=== PATIENT | male | born 1970 | race Caucasian/White ===

== ENCOUNTER 2017-11-16 06:08 | Day surgery (SDC) | payer OTHER ==
[2017-11-16] VITALS (12 sets, daily range): BP systolic 101–173; BP diastolic 57–106
[~2017-11-16] VITALS: Ht 180.3 cm; Wt 113.4 kg
[~2017-11-16 06:08] MED LIST: IBUPROFEN200 M3 PO; LOVENOX10 M4 SUBQ; NORCO 5-325 TA1 EAC1 ORAL; XARELTO10 MG ORAL
[2017-11-16] MEDS ORDERED: fentaNYL 100 mcg/2 mL IV ONE (06:09)
[2017-11-16] MEDS ORDERED: Alfentanil 2ml Inj ONE (06:09)
[2017-11-16] MEDS ORDERED: Midazolam 2mg/2ml Inj ONE (06:09)
[2017-11-16] MEDS ORDERED: LR 1000ml ONE (06:09)
[2017-11-16] MEDS ORDERED: NS Irrig 4000ml IRRIG ONE (06:09)
[2017-11-16] MEDS ORDERED: Propofol 200mg/20ml IV ONE (06:09)
[2017-11-16] MEDS ORDERED: Metoprolol 5mg/5ml Inj ONE (06:09)
[2017-11-16] MEDS ORDERED: Dexamethasone 4mg/ml vial ONE (06:09)
[2017-11-16] MEDS ORDERED: Lidocaine 1% MPF 10mg/ml 5ml ONE (06:09)
[2017-11-16] MEDS ORDERED: celeBREX 200mg Cap **SURGERY PATIENTS ONLY ORAL SCH (07:30)
[2017-11-16] MEDS ORDERED: oxyCONTIN 20mg tab ORAL SCH (07:30)
[2017-11-16] MEDS ORDERED: ceFAZolin sod 1 GM in NS 55 ML IVPB SCH (07:30)
[2017-11-16] MEDS ORDERED: D5 1/2NS 1,000 ML IV SCH (07:45)
[2017-11-16] MEDS ORDERED: Norco 5mg/325mg tab ORAL PRN ×2 (07:45→08:15)
[2017-11-16] MEDS ORDERED: HYDROmorphone 1mg/ml Carpuject SUBQ PRN (07:45)
[2017-11-16] MEDS ORDERED: Tylenol #3 tab (300mg/30mg) ORAL PRN (07:45)
--- NOTE | 2017-11-16 07:47 | Pre-Procedure Note/Attestation ---
Pre-Procedure Note/Attestation Complete Prior to Procedure Planned Procedure: left Procedure Narrative: knee diagnostic arthroscopy, removal hardware left knee Indications for Procedure Pre-Operative Diagnosis: left painful hardware , internal derangement left knee Attestation I attest that I discussed the nature of the procedure; its benefits; risks and complications; and alternatives (and the risks and benefits of such alternatives ), prior to the procedure, with the patient (or the patient's legal artists' booking representative). I attest that, if there was a reasonable possibility of needing a blood transfusion, the patient (or the patient's legal artists' booking representative) was given the [facility] standardized written summary, pursuant to the [place] Blood Safety Act ([place] Health and Safety Code # 1645, as amended). I attest that I re-evaluated the patient just prior to the surgery and that there has been no change in the patient's H&P, except as documented below: ALLIE GIRON Nov 16, 2017 07:47
--- NOTE | 2017-11-16 07:47 | Operative Note - PDOC ---
Operative Note Operative Note Pre-op Diagnosis: left painful hardware , internal derangement left knee Procedure: see op report Post-op Diagnosis: same as pre-op plus Operative Findings: consistent w/pre-op dx studies Anesthesia: regional Specimen: none Complications: none Condition: stable Estimated Blood Loss: none Implant(s) used?: No ALLIE GIRON Nov 16, 2017 07:47
[2017-11-16] MEDS ORDERED: LR 1000ml 1,000 ML IVLG SCH (08:07)
[2017-11-16] MEDS ORDERED: EPINEPHrine 1mg/1ml Amp ONE (08:07)
[2017-11-16] MEDS ORDERED: Morphine Sulfate PF 10 ML ONE (08:07)
[2017-11-16] MEDS ORDERED: Lidocaine 1% 10mg/ml/Epi 0.005mg/ml 30ml vial INJ ONE ×2 (08:07→09:25)
[2017-11-16] MEDS ORDERED: Kenalog-40 1ml Vial ONE (08:07)
[2017-11-16] MEDS ORDERED: Bupivacaine 0.25% Inj 30ml INJ ONE ×2 (08:08→09:25)
[2017-11-16] MEDS ORDERED: Midazolam 2mg/2ml Inj IVP PRN (08:15)
[2017-11-16] MEDS ORDERED: oxyCODONE HCL/Acetaminophen 5/325mg ORAL PRN (08:15)
[2017-11-16] MEDS ORDERED: Ketorolac 30mg Inj IV PRN ×2 (08:15)
[2017-11-16] MEDS ORDERED: fentaNYL 100 mcg/2 mL IV PRN (08:15)
[2017-11-16] MEDS ORDERED: DiphenhydrAMINE 50mg/ml Inj IVP PRN (08:15)
[2017-11-16] MEDS ORDERED: Hydromorphone 0.5mg/0.5ml inj IVP PRN (08:15)
[2017-11-16] MEDS ORDERED: HYDROcodone/Acetamin 7.5/325 tab ORAL PRN (08:15)
[2017-11-16] MEDS ORDERED: Labetalol 5mg/ml 20ml vial IV PRN (08:15)
[2017-11-16] MEDS ORDERED: LORazepam Inj 2mg/ml 1ml IV PRN (08:15)
[2017-11-16] MEDS ORDERED: Atropine Inj 1mg/10ml Syr IV PRN (08:15)
--- NOTE | 2017-11-16 08:15 | Anethesia Preoperative Eval ---
Anesthesia Pre-op PMH/ROS General Date of Evaluation: Nov 16, 2017 Time of Evaluation: 08:13 Anesthesiologist: Braxton ASA Score: ASA 3 Mallampati Score Class I : Soft palate, uvula, fauces, pillars visible Class II: Soft palate, uvula, fauces visible Class III: Soft palate, base of uvula visible Class IV: Only hard plate visible Mallampati Classification: Class III Surgeon: Diagnosis: L Knee Pain Surgical Procedure: L Knee Removal Hardware Anesthesia History: none Family History: no anesthesia problems Allergies: Coded Allergies: No Known Allergies (Unverified , 11/14/17) Medications: see eMAR Past Medical History Cardiovascular: Reports: HTN Pulmonary: Reports: asthma Gastrointestinal/Genitourinary: Reports: other - Hiatal Hernia Neurologic/Psychiatric: Reports: depression/anxiety Other: obesity PSxH Narrative: Multiple Knee SX, Abd Sx X 3 Anesthesia Pre-op Phys. Exam Physician Exam Last Vital Signs Date Time Temp Pulse Resp B/P (MAP) Pulse Ox O2 Delivery O2 Flow Rate FiO2 11/16/17 06:57 97.8 101 18 152/92 95 Room Air 97.8 Constitutional: NAD Neurologic: CN 2-12 intact Cardiovascular: RRR Respiratory: CTA Gastrointestinal: S/NT/ND Airway Exam Mallampati Score: Class III MO: limited ROM: limited Teeth: missing, intact Anesthesia Pre-op A/P Risk Assessment & Plan Assessment: ASA 3 Plan: GA, BIS Status Change Before Surgery: No Pre-Antibiotics Dru Grams Ancef IV Given Within 1 Hr of Incision: Yes Time Given: 08:31 Shyam Rosario MD Nov 16, 2017 08:15
--- NOTE | 2017-11-16 08:18 | Immediate Post-Op Evaluation ---
Immediate Post-Op Evalulation Immediate Post-Op Evalulation Procedure: L Knee Hardware Removal Date of Evaluation: Nov 16, 2017 Time of Evaluation: 10:59 IV Fluids: 300 LR Blood Products: 0 Estimated Blood Loss: 25 Urinary Output: 0 Blood Pressure Systolic: 177 Blood Pressure Diastolic: 118 Pulse Rate: 96 Respiratory Rate: 16 O2 Sat by Pulse Oximetry: 100 Temperature (Fahrenheit): 99.7 Pain Score (1-10): 2 Nausea: No Vomiting: No Complications 0 Patient Status: awake, reacts, patent, none Hydration Status: adequate Dru Grams Ancef IV Given Within 1 Hr of Incision: Yes Time Given: 08:31 Shyam Rosario MD Nov 16, 2017 08:18
--- NOTE | 2017-11-16 08:19 | 48 Hour Post Anesthesia Eval ---
Post Anesthesia Evaluation Procedure: L Knee Hardware Removal Date of Evaluation: Nov 16, 2017 Time of Evaluation: 13:21 Blood Pressure Systolic: 177 0: 118 Pulse Rate: 77 Respiratory Rate: 18 Temperature (Fahrenheit): 99.7 O2 Sat by Pulse Oximetry: 100 Airway: patent Nausea: No Vomiting: No Pain Intensity: 2 Hydration Status: adequate Cardiopulmonary Status: Stable Mental Status/LOC: patient returned to baseline Follow-up Care/Observations: 0 Post-Anesthesia Complications: 0 Follow-up care needed: ready to discharge Shyam Rosario MD Nov 16, 2017 08:19
[2017-11-16] MEDS ORDERED: Acetaminophen (Non formulary) 100 ML IV SCH (08:30)
[2017-11-16] MEDS ORDERED: Kenalog-40 1ml Vial IARTIC ONE (09:25)
[2017-11-16] MEDS ORDERED: Ketorolac 30mg Inj IM ONE (09:25)
[2017-11-16] MEDS ORDERED: Duramorph PF 10mg/10ml amp IV ONE (09:25)
[2017-11-16] MEDS ORDERED: EPINEPHrine 1mg/1ml Amp INJ ONE (09:25)
--- NOTE | 2017-11-16 18:30 | Operative Note - Dictated ---
DATE OF OPERATION: 11/16/2017 PREOPERATIVE DIAGNOSES: 1. Status post open reduction and internal fixation of left tibial plateau fracture. 2. Left knee posttraumatic arthrosis. 3. Painful hardware. POSTOPERATIVE DIAGNOSES: 1. Right knee medial femoral condyle grade 2 chondral damage. 2. Right knee medial tibial plateau chondral damage. 3. Left knee lateral meniscus tear. 4. Left knee lateral tibial chondral damage. 5. Hypertrophic synovial tissue. 6. Painful hardware. PROCEDURES: 1. Left knee arthroscopic partial lateral meniscectomy. 2. Chondroplasty, medial and lateral compartment. 3. Synovectomy, lateral patellofemoral compartment. 4. Removal of lateral hardware, one plate and eight screws. 5. Removal of medial plate and screws (1 plate and 4 screws). SURGEON: John Patel M.D. ANESTHESIA: MAC. INDICATION FOR PROCEDURE: A pleasant gentleman, who underwent open reduction and internal fixation of bicolumnar tibial plateau fracture. He had significant pain and discomfort, and had subsidence of the fracture fragments. The patient developed posttraumatic arthrosis with widening of the lateral tibial plateau. It was felt that the patient will require left total knee arthroplasty. Given the fixation of primary fracture, it was felt that it may have to be removed first in order to perform a revision total knee arthroplasty. Therefore, we elected to undergo left knee arthroscopy and removal of hardware. Risks, limitations, expectations, and complications of procedure were discussed in detail. All questions addressed. DESCRIPTION OF PROCEDURE: After informed consent was obtained, the patient was brought to the operating room and placed the patient under general anesthesia. The patient's left leg was prepped and draped in a sterile manner. Time-out was performed. Portal sites were marked out and injected with 1% lidocaine with epinephrine. Inferolateral stab incision was then made. A trocar was introduced into the knee joint. Hypertrophic synovial tissue in the retropatellar space area. There is grade 2 chondral damage in the patellofemoral compartment. Medial compartment was entered and showed grade 2 chondral damage of the posterior aspect of the medial femoral condyle. A medial working portal was established and synovectomy of the medial intercondylar notch and lateral compartment was performed. At this point, the medial meniscus was probed and it was grossly intact. The area of chondral damage in the medial femoral condyle was then addressed using gentle chondroplasty. ACL was probed and noted to be intact. Lateral compartment was entered. It seemed like portion a portion of the lateral meniscus was incarcerated into the fracture fragment that is depressed. There was also fraying consistent with a tear, and therefore, a partial lateral meniscectomy was performed. Once that was done, gentle chondroplasty was also performed. Camera was repositioned in the patellofemoral compartment. Synovectomy was completed. Once that was done, attention was turned towards removal of the hardware. The previous lateral skin incision was then marked out. The skin was incised. Blunt dissection down to the lateral tibial plateau was performed. Multiple screws were removed along with the plate. Once that was done, the wound was copiously irrigated. The skin was closed with #1 Vicryl suture, 2-0 Vicryl suture, and 3-0 Monocryl sutures. Once this was done, the medial incision was marked out and the skin was incised. Blunt dissection down to the plate was performed. One of the screws had backed out approximately a centimeter. The plate and 4 screws were removed medially. Once that was done, the wound was copiously irrigated. Hemostasis was achieved using electrocautery. Skin was closed with #1 Vicryl suture, 2-0 Vicryl suture, and 3-0 Monocryl sutures. Steri-Strips and a sterile dressing were applied. The patient was awoken and taken to recovery room with stable vital signs. ESTIMATED BLOOD LOSS: None. COMPLICATIONS: None. SPECIMENS: None. IMPLANTS: None. EXPLANTS: 1. Lateral tibial plate with multiple screws. 2. Medial tibial plateau plate with 4 screws. John Patel M.D. DR: JACOB JOB#: [id number] CC:
== END 2017-11-16 13:25 | disposition home or self-care (01) ==
LOC: SUR 06:08
DX: T85.848A Pain due to other internal prosthetic devices, implants and grafts, initial encounter (principal); S83.282A Other tear of lateral meniscus, current injury, left knee, initial encounter; M67.262 Synovial hypertrophy, not elsewhere classified, left lower leg; X58.XXXA Exposure to other specified factors, initial encounter; Y93.9 Activity, unspecified; Y92.9 Unspecified place or not applicable; I10 Essential (primary) hypertension; F41.9 Anxiety disorder, unspecified; F32.9 Major depressive disorder, single episode, unspecified
CPT/HCPCS: 20680; 29881; J0171; J0690; J1100; J1170; J1885; J2250; J2274; J2405; J2704; J3010; J3301; J3490; J7120; 94003; 94150

== ENCOUNTER 2018-02-15 09:57 | Inpatient (IN) | payer OTHER ==
[2018-02-15] VITALS (13 sets, daily range): BP systolic 107–171; BP diastolic 80–108
[~2018-02-15] VITALS: Ht 177.8 cm; Wt 113.4 kg
[~2018-02-15 09:57] MED LIST changes: +ceFAZolin 1gm in D5W 55ml IVP ONE; +celeBREX 200mg Cap **SURGERY PATIENTS ONLY ORAL ONE; +oxyCONTIN 20mg tab ORAL ONE
[2018-02-15] MEDS ORDERED: MEDICINAL MARIJUANA PO (10:58)
[2018-02-15] MEDS ORDERED: oxyCONTIN 20mg tab ORAL ONE (11:33)
[2018-02-15] MEDS ORDERED: celeBREX 200mg Cap **SURGERY PATIENTS ONLY ORAL ONE (11:33)
[2018-02-15] MEDS ORDERED: Kenalog-40 1ml Vial ONE (13:59)
[2018-02-15] MEDS ORDERED: Bupivacaine 0.25% Inj 30ml INJ ONE (13:59)
[2018-02-15] MEDS ORDERED: EPINEPHrine 1mg/1ml Amp ONE (13:59)
[2018-02-15] MEDS ORDERED: Morphine Sulfate PF 10 ML ONE (13:59)
[2018-02-15] MEDS ORDERED: Ketorolac 30mg Inj ONE (13:59)
[2018-02-15] MEDS ORDERED: NeoSporin Gu Irrig 1ml Amp IRRIG ONE (14:00)
[2018-02-15] MEDS ORDERED: Bacitracin 50000 Units Vial ONE (14:00)
[2018-02-15] MEDS ORDERED: Sterile Water Irrig 1000ml IRRIG ONE (14:30)
[2018-02-15] MEDS ORDERED: NS Irrig 1000ml ONE (14:30)
[2018-02-15] MEDS ORDERED: LR 1000ml ONE (14:30)
--- NOTE | 2018-02-15 14:49 | Anethesia Preoperative Eval ---
Anesthesia Pre-op PMH/ROS General Date of Evaluation: Feb 15, 2018 Time of Evaluation: 14:41 Anesthesiologist: Marlene ASA Score: ASA 3 Mallampati Score Class I : Soft palate, uvula, fauces, pillars visible Class II: Soft palate, uvula, fauces visible Class III: Soft palate, base of uvula visible Class IV: Only hard plate visible Mallampati Classification: Class III Surgeon: Jorge Diagnosis: L Knee Pain Surgical Procedure: Revision L Knee Total Arthroplasty Anesthesia History: none Family History: no anesthesia problems Allergies: Coded Allergies: No Known Allergies (Unverified , 11/14/17) Medications: see eMAR Past Medical History Cardiovascular: Reports: HTN Pulmonary: Reports: asthma Gastrointestinal/Genitourinary: Reports: other - Hiatal Hernia Neurologic/Psychiatric: Reports: depression/anxiety Hematology/Immune: Reports: anemia Other: obesity - BMI 37 PSxH Narrative: Multiple Orthopedic SXs, Abdominal Surgery Anesthesia Pre-op Phys. Exam Physician Exam Last Vital Signs Date Time Temp Pulse Resp B/P (MAP) Pulse Ox O2 Delivery O2 Flow Rate FiO2 02/15/18 11:35 68 18 107/80 (89) 97 02/15/18 11:04 Room Air 02/15/18 10:38 98.6 98.6 Constitutional: NAD Neurologic: CN 2-12 intact Cardiovascular: RRR Respiratory: CTA Gastrointestinal: S/NT/ND Airway Exam Mallampati Score: Class III MO: full ROM: limited Teeth: missing, intact Anesthesia Pre-op A/P Risk Assessment & Plan Assessment: ASA 3 Plan: GA, Refused Block Status Change Before Surgery: No Pre-Antibiotics Dru Grams Ancef IV Given Within 1 Hr of Incision: Yes Time Given: 15:01 Shyam Rosario MD Feb 15, 2018 14:49
[2018-02-15] MEDS ORDERED: Lidocaine 1% MPF 10mg/ml 5ml ONE (15:01)
[2018-02-15] MEDS ORDERED: Dexamethasone 4mg/ml vial ONE (15:01)
[2018-02-15] MEDS ORDERED: Sodium Chloride 10ml vial INJ ONE (15:01)
[2018-02-15] MEDS ORDERED: Propofol 200mg/20ml IV ONE (15:01)
[2018-02-15] MEDS ORDERED: Duramorph PF 10mg/10ml amp EPIDUR ONE (15:03)
--- NOTE | 2018-02-15 15:12 | Pre-Procedure Note/Attestation ---
Pre-Procedure Note/Attestation Complete Prior to Procedure Planned Procedure: left Procedure Narrative: tka Indications for Procedure Pre-Operative Diagnosis: left knee arrthrosis Attestation I attest that I discussed the nature of the procedure; its benefits; risks and complications; and alternatives (and the risks and benefits of such alternatives ), prior to the procedure, with the patient (or the patient's legal lifeline representatives). I attest that, if there was a reasonable possibility of needing a blood transfusion, the patient (or the patient's legal lifeline representatives) was given the [facility] standardized written summary, pursuant to the [place] Blood Safety Act ([place] Health and Safety Code # 1645, as amended). I attest that I re-evaluated the patient just prior to the surgery and that there has been no change in the patient's H&P, except as documented below: John Patel MD Feb 15, 2018 15:12
--- NOTE | 2018-02-15 15:13 | Operative Note - PDOC ---
Operative Note Operative Note Pre-op Diagnosis: left knee arrthrosis Procedure: see op report Post-op Diagnosis: same as pre-op plus Operative Findings: consistent w/pre-op dx studies Anesthesia: regional Specimen: none Complications: none Condition: stable Estimated Blood Loss: none Implant(s) used?: Yes John Patel MD Feb 15, 2018 15:13
[2018-02-15] MEDS ORDERED: Lidocaine 1% Plain 30 ml INJ ONE ×2 (15:17→16:46)
[2018-02-15] MEDS ORDERED: Acetaminophen (Non formulary) 100 ML IV ONE (15:22)
[2018-02-15] MEDS ORDERED: Hydromorphone 0.5mg/0.5ml inj IVP PRN (15:23)
[2018-02-15] MEDS ORDERED: fentaNYL 100 mcg/2 mL IV PRN (15:23)
[2018-02-15] MEDS ORDERED: Norco 5mg/325mg tab ORAL PRN (15:24)
[2018-02-15] MEDS ORDERED: Ketorolac 30mg Inj IV PRN ×2 (15:24→15:25)
[2018-02-15] MEDS ORDERED: HYDROcodone/Acetamin 7.5/325 tab ORAL PRN (15:24)
[2018-02-15] MEDS ORDERED: Metoclopramide 10mg/2ml Inj IVP PRN (15:25)
[2018-02-15] MEDS ORDERED: Midazolam 2mg/2ml Inj IVP PRN (15:25)
[2018-02-15] MEDS ORDERED: oxyCODONE HCL/Acetaminophen 5/325mg ORAL PRN (15:25)
[2018-02-15] MEDS ORDERED: LORazepam Inj 2mg/ml 1ml IV PRN (15:25)
[2018-02-15] MEDS ORDERED: DiphenhydrAMINE 50mg/ml Inj IVP PRN (15:26)
[2018-02-15] MEDS ORDERED: Atropine Inj 1mg/10ml Syr IV PRN (15:26)
[2018-02-15] MEDS ORDERED: LR 1000ml 1,000 ML IVLG SCH (15:27)
--- NOTE | 2018-02-15 15:45 | Immediate Post-Op Evaluation ---
Immediate Post-Op Evalulation Immediate Post-Op Evalulation Procedure: Revision L Knee Total Arthroplasty Date of Evaluation: Feb 15, 2018 Time of Evaluation: 17:54 IV Fluids: 1100 Blood Products: 0 Estimated Blood Loss: 25 Urinary Output: 100 Blood Pressure Systolic: 177 Blood Pressure Diastolic: 103 Pulse Rate: 119 Respiratory Rate: 16 O2 Sat by Pulse Oximetry: 100 Temperature (Fahrenheit): 99.1 Pain Score (1-10): 4 Nausea: No Vomiting: No Complications 0 Patient Status: awake, reacts, patent, none Hydration Status: adequate Dru Grams Ancef IV Given Within 1 Hr of Incision: Yes Time Given: 15:01 Shyam Rosario MD Feb 15, 2018 15:45
--- NOTE | 2018-02-15 15:48 | 48 Hour Post Anesthesia Eval ---
Post Anesthesia Evaluation Procedure: Revision L Knee Total Arthroplasty Date of Evaluation: Feb 15, 2018 Time of Evaluation: 19:57 Blood Pressure Systolic: 163 0: 92 Pulse Rate: 103 Respiratory Rate: 18 Temperature (Fahrenheit): 98.6 O2 Sat by Pulse Oximetry: 100 Airway: patent Nausea: No Vomiting: No Pain Intensity: 4 Hydration Status: adequate Cardiopulmonary Status: Stable Mental Status/LOC: patient returned to baseline Follow-up Care/Observations: 0 Post-Anesthesia Complications: 0 Follow-up care needed: N/A Shyam Rosario MD Feb 15, 2018 15:48
[2018-02-15] MEDS ORDERED: Tranexamic Acid 1,000 MG in NS 65 ML IVPB ONE (16:00)
[2018-02-15] MEDS ORDERED: fentaNYL 100 mcg/2 mL IV ONE (16:09)
[2018-02-15] MEDS ORDERED: Morphine Sulfate 2mg/ml Inj IVP PRN (18:00)
[2018-02-15] MEDS: Labetalol 5mg/ml 20ml vial IV PRN ×2 (18:18→18:59)
--- NOTE | 2018-02-15 20:48 | Diagnostic Imaging Report ---
EXAM: XR Left Knee, 1 or 2 views CLINICAL HISTORY: F/U TECHNIQUE: Frontal and/or lateral views of the left knee. COMPARISON: No relevant prior studies available. FINDINGS: Bones/joints: Knee replacement, may be asymmetrically positioned relative to the tibial plateau. Soft tissues: Soft tissue swelling and emphysema that may be from recent surgery or infection. IMPRESSION: Soft tissue swelling and emphysema that may be from recent surgery or infection. Correlate. [employer] 02/15/18 21:01 Verify Receipt Verified receipt with KAYKAY BOOTHE on 02/15 21: 00 (-07:00)
[2018-02-15] MEDS: D5 1/2NS w/KCl 20mEq 1,000 ML IV SCH (21:40)
[2018-02-16] VITALS: BP 130/98
[2018-02-16] MEDS ORDERED: Metoclopramide 10mg/2ml Inj IVP PRN (00:30)
--- NOTE | 2018-02-16 01:16 | Operative Note - Dictated ---
DATE OF OPERATION: 02/15/2018 "NOTE: POOR AUDIO QUALITY" PREOPERATIVE DIAGNOSIS: Posttraumatic osteoarthritis, left knee. POSTOPERATIVE DIAGNOSIS: Posttraumatic osteoarthritis, left knee. PROCEDURE: Complex left total knee arthroplasty secondary to previous surgery. SURGEON: John Patel M.D. ANESTHESIA: General with femoral adductor block. INDICATION FOR PROCEDURE: The patient is a pleasant 47-year-old gentleman, who sustained a significant left tibial plateau fracture. He underwent open reduction and internal fixation of tibial plateau fracture, significant posttraumatic arthrosis, difficulty ambulating elected to be converted to total knee arthroplasty. Risks, limitations, expectations, and complications related to the procedure were discussed in detail including wound infection, nerve or vessel damage, stiffness, need for future surgery, risk of anesthesia, medical complications, DVT, PE, and mortality risks. All questions were addressed. DESCRIPTION OF PROCEDURE: After informed consent was obtained, the patient was brought to the operating room, was placed under general with femoral adductor block. Garcia catheter was placed. Ancef was administered. Time-out was performed. Left leg was prepped and draped in a sterile manner. Previous skin incision was marked out. Range of motion of the left knee under anesthesia was -10 to about 120. Medial parapatellar arthrotomy was performed. Distal femur was well visualized. Distal femoral cutting block was placed. Additional 2 mm of femur was resected given the flexion contracture. The distal femur was resected. A sizing guide was placed, measured to size 7 size 7 cutting block was placed, and the anterior and posterior chamfer cuts were then made. Medial and lateral meniscus removed. Proximal tibial well visualized. There was significant posterolateral wound bone loss. In order to cut just the bone loss, a significant portion of the medial compartment was needed to be resected. Once proximal tibia was resected using the extramedullary guide, reaming up to 18 was performed. At this point, reduction with a size 7 femoral component, size 6 tibial base plate with a 9 mm had some tightness in flexion as well as extension. Distal 2 mm were resected. This allowed the knee to come out additional 2 mm were taken off the proximal tibia. Once this was done, the knee was well balanced, came out to full extension, had good stability with full extension with varus/valgus stressing at extension 10 degrees and mid flexion to 90 degrees with good tracking of the patella. At this point, the patella was everted. Freehand resection was performed. A 33 mm patellar component was selected and placed. Calculated 26 mm in width, which was . At this point, the cement was prepared. The final implants were impacted into place. Excess cement was removed. Arthrotomy site was closed with #1 Vicryl suture, 2-0 Vicryl suture, 3-0 Monocryl sutures, and Dermabond. Compression dressing was applied. The patient was awoken and taken to recovery room with stable vital signs. ESTIMATED BLOOD LOSS: Minimal. COMPLICATIONS: None. SPECIMENS: Bone cuts. IMPLANTS: A size 7 femoral component, size 6 tibial base plate, 9 mm tibial insert with 31 mm patellar component. John Patel M.D. DR: FELICITA JOB#: [id number] CC: ARMIDA
[2018-02-16 04:00] VITALS: BP 143/83
[2018-02-16] MEDS ORDERED: HYDROcodone/Acetamin 10/325 tab ORAL PRN ×2 (06:45→07:15)
[2018-02-16 07:55] LABS: HEMATOCRIT 42.5 % (42.0-52.0); HEMOGLOBIN 14.5 G/DL (14.2-18.0); MEAN CORPUSCULAR VOLUME 83 FL (80-99); PLATELET COUNT 241 K/UL (150-450); RED BLOOD COUNT 5.14 M/UL (4.70-6.10); RED CELL DISTRIBUTION WIDTH 11.9 % (11.6-14.8); WHITE BLOOD COUNT 16.3 K/UL (4.8-10.8)
[2018-02-16] MEDS: D5 1/2NS w/KCl 20mEq 1,000 ML IV SCH (10:31)
--- NOTE | 2018-02-16 11:48 | General Progress Note ---
Assessment/Plan Status Narrative s/p tkr pos top anemia pt ot dvt prophyalxsis Subjective Date patient seen: Feb 16, 2018 Time patient seen: 11:47 Constitutional: Reports: no symptoms HEENT: Reports: no symptoms Cardiovascular: Reports: no symptoms Allergies: Coded Allergies: No Known Allergies (Unverified , 11/14/17) Subjective taking cbd oil and choclate pot Objective Last 24 Hour Vital Signs Date Time Temp Pulse Resp B/P (MAP) Pulse Ox O2 Delivery O2 Flow Rate FiO2 02/16/18 04:00 97.5 86 18 143/83 (103) 100 97.5 02/16/18 00:00 97.5 94 18 130/98 (109) 98 97.5 02/15/18 21:00 Nasal Cannula 2.0 02/15/18 20:00 97.0 80 20 153/108 (123) 95 97.0 02/15/18 20:00 97.0 80 20 153/108 (123) 95 97.0 02/15/18 19:30 98.8 80 15 155/81 96 Nasal Cannula 3 98.8 02/15/18 19:15 78 19 153/92 97 Nasal Cannula 3 02/15/18 19:00 81 15 163/87 100 Nasal Cannula 3 02/15/18 18:59 84 182/103 02/15/18 18:45 86 21 166/84 100 Nasal Cannula 3 02/15/18 18:30 87 15 159/91 100 Simple Mask 6 02/15/18 18:18 116 202/102 02/15/18 18:18 116 18 171/101 100 Simple Mask 6 02/15/18 18:05 114 15 168/99 100 Simple Mask 6 02/15/18 17:53 110 13 165/94 100 Simple Mask 6 02/15/18 17:48 111 19 168/95 100 Simple Mask 6 02/15/18 17:45 209.5 103 18 100 02/15/18 17:44 210.4 119 16 100 02/15/18 17:43 99 119 16 165/99 100 Simple Mask 6 99.0 Intake and Output 02/15/18 02/16/18 19:00 07:00 Intake Total 1100 ml 1275 ml Output Total 125 ml 750 ml Balance 975 ml 525 ml Intake Oral 200 ml IV Total 1100 ml 1075 ml Output Urine Total 100 ml 650 ml Emesis 100 ml Estimated Blood Loss 25 ml # Voids 1 s/p tkr perioperative blood loss postopanemia Height (Feet): 5 Height (Inches): 10.00 Weight (Pounds): 250 General Appearance: WD/WN Cardiovascular: normal rate, regular rhythm Respiratory/Chest: lungs clear Abdomen: soft Turner Olivarez MD Feb 16, 2018 11:48
[2018-02-16 12:00] VITALS: BP 139/85
[2018-02-16] MEDS ORDERED: TRAMADOL HCL50 MG ORAL (14:58)
--- NOTE | 2018-02-16 19:31 | Progress Note ---
DATE: 02/16/2018 SUBJECTIVE: The patient is postop day #1, status post left total knee arthroplasty. He is doing relatively well. He has no medical complaints. OBJECTIVE: SKIN: Examination shows incision to be clean, dry, and intact. Posterior calf is soft. Range of motion is -10 to 90. ASSESSMENT: Status post left total knee replacement. DISCUSSION: At this point, his pain is pretty well controlled. At this point, what we are going to do is work with physical therapy. He wants to go home and if he is cleared by physical therapy, he can go home. I instructed on appropriate postoperative protocol to work on extension and flexion. I instructed on local wound care. He is going to take narcotics only as needed given his previous history with complications related to the narcotics. I will see him back in two weeks. John Patel M.D. DR: Velasquez JOB#: [id number] CC:
--- NOTE | 2018-02-18 15:10 | Discharge Summary ---
Discharge Summary Hospital Course Date of Admission Feb 15, 2018 at 18:59 Date of Discharge Feb 16, 2018 at 15:40 Admitting Diagnosis Posttraumatic osteoarthritis, left knee. Reason for Hospitalization: elective surgery HPI Mateusz Wade is a 47 year old male who was admitted on Feb 15, 2018 at 18:59 for Left Knee Posttraumatic Arthrosis Patient was admitted for elective surgery Consultations dr Olivarez IM Procedures s/p by dr Cesar Complex left total knee arthroplasty secondary to previous surgery. Hospital Course s/p surgery initially IV fluids pain management wound care patient was working with PT/OT incision clean, dry and intact pain controlled voided freely tolerated diet patient was instructed by surgeon on proper postoperative protocol to work on flexion and extension local wound care instruction provided patient was stable for discharge home outpatient follow-up with surgeon in 2 weeks as advised by surgeon FINAL DIAGNOSIS Posttraumatic osteoarthritis, left knee s/p revision of left total knee arthroplasty Discharge Medications Continued Medications: Tramadol Hcl* (Ultram*) 50 Mg Tablet 50 MG ORAL Q6H PRN for For Pain, #30 TAB 0 Refills (This prescription has been renewed) Discharge Condition Upon Discharge: stable Discharge Disposition Patient was discharged to Home () Discharge Instructions Discharge Instructions Special Instructions I have been assigned to complete a D/C Summary on this account. I was not involved in the patient management Lucia Johnston NP Feb 18, 2018 15:10
== END 2018-02-16 15:40 | disposition home or self-care (01) | DRG 470 ==
LOC: SUR 09:57 → 3E 18:59
PROC: 0SRD0J9 Replacement of Left Knee Joint with Synthetic Substitute, Cemented, Open Approach (ICD-10-PCS; principal; 2018-02-15 11:45)
DX: M17.32 Unilateral post-traumatic osteoarthritis, left knee (principal); D64.9 Anemia, unspecified; I10 Essential (primary) hypertension; J45.909 Unspecified asthma, uncomplicated
CPT/HCPCS: 36415; 85007; 85025; 86850; 86900; 86901; 87081; J2405; J2765